=== PATIENT | female | born 1985 | race Caucasian/White ===

== ENCOUNTER 2020-05-02 02:07 | Inpatient (IN) | payer OTHER, SELFPAY ==
[~2020-05-02] VITALS: Ht 167.6 cm; Wt 118.7 kg
[2020-05-02] VITALS (21 sets, daily range): BP systolic 101–145; BP diastolic 46–82
[~2020-05-02 02:07] MED LIST: GLIP10TA9 PO; INSLAN SQ; INSU100C6 SQ; LISI-613 PO
[2020-05-02 02:36] LABS: BASOPHILS % (AUTO) 0.3 % (0.0-5.0); EOSINOPHILS % (AUTO) 0.1 % (0.0-8.0); HEMATOCRIT 42.1 % (36-48); LYMPHOCYTES % (AUTO) 15.8 % (21.0-51.0); MEAN CORPUSCULAR HEMOGLOBIN 28.3 pg (27.0-33.0); MEAN CORPUSCULAR HGB CONC 33.7 g/dL (32.0-36.0); NEUTROPHILS % (AUTO) 79.1 % (40.0-77.0); PLATELET COUNT (AUTO) 385 K/uL (130-400); RED BLOOD CELL COUNT(AUTO) 5.01 MIL/uL (4.00-5.50); RED CELL DISTRIBUTION WIDTH 14.2 % (11.0-15.5); WHITE BLOOD COUNT (AUTO) 24.6 K/uL (4.8-10.8)
[2020-05-02 02:38] LABS: APPEARANCE,URINE Cloudy (CLEAR); BILIRUBIN,URINE Small (NEGATIVE); COLOR,URINE Dark Yellow (YELLOW); GLUCOSE, URINE (UA) TRACE mg/dL (NEGATIVE); KETONES,URINE Negative (NEGATIVE); LEUKOCYTE ESTERASE ,URINE Small (NEGATIVE); NITRATE,URINE Positive (NEGATIVE); OCCULT BLOOD,URINE Large (NEGATIVE); PROTEIN,URINE >=1000 mg/dL (NEGATIVE)
[2020-05-02] MEDS ORDERED: METOCLOPRAMIDE 10 MG/2 ML VIAL ONE (02:41)
[2020-05-02] MEDS ORDERED: SODIUM CHLORIDE 0.9% 1000ML 1,000 ML IV ONE ×3 (02:42→05:25)
[2020-05-02] MEDS ORDERED: ONDANSETRON HCL 4 MG/2 ML VIAL ONE ×3 (02:42→17:35)
[2020-05-02] MEDS ORDERED: DiphenhydrAMINE HCL 50 MG/ML VIAL ONE (02:42)
[2020-05-02 02:44] LABS: HCG,QUAL RESULT NEGATIVE (NEGATIVE)
[2020-05-02 02:49] LABS: INR 0.9 (0.85-1.15); PARTIAL THROMBOPLASTIN TIME 24.8 SEC (26.3-35.5); PROTHROMBIN TIME 9.8 SEC (9.6-11.6)
[2020-05-02 03:16] LABS: BACTERIA,URINE Moderate /HPF (None Seen); SQUAMOUS EPITHELIAL CELL,UR Few /HPF (0-2)
[2020-05-02 03:17] LABS: ALBUMIN 3.1 g/dL (3.5-5.0); AMORPHOUS SEDIMENT,UR Moderate /LPF (None Seen); BILIRUBIN,TOTAL 0.5 mg/dL (0.2-1.0); CREATININE 0.9 mg/dL (0.5-1.5); POTASSIUM 3.7 mmol/L (3.5-5.1); TOTAL PROTEIN, SERUM 8.2 g/dL (6.0-8.3)
[2020-05-02] MEDS ORDERED: IOHEXOL-350 75 ML VIAL IV ONE (03:54)
[2020-05-02] MEDS ORDERED: CEFTRIAXONE SODIUM 2 GM VIAL ONE (04:07)
[2020-05-02] MEDS ORDERED: DEXTROSE 50%-WATER 50 ML DISP.SYRIN IV PRN (05:15)
[2020-05-02] MEDS: SODIUM CHLORIDE 0.9% 1000ML 1,000 ML IV SCH ×2 (05:15→15:15)
[2020-05-02] MEDS ORDERED: ONDANSETRON HCL 4 MG/2 ML VIAL IV PRN (05:15)
[2020-05-02] MEDS ORDERED: NITROGLYCERIN 0.4 MG SL TAB SL PRN (05:15)
[2020-05-02] MEDS ORDERED: GLUCAGON 1MG KIT 1 MG ML IM PRN (05:15)
[2020-05-02] MEDS ORDERED: DIPHENHYDRAMINE HCL 25 MG CAPSULE PO PRN (05:15)
[2020-05-02] MEDS ORDERED: ACETAMINOPHEN 325 MG TAB PO PRN ×2 (05:15)
[2020-05-02] MEDS ORDERED: MORPHINE SULFATE 2 MG/ML 1ML SYG ONE (05:25)
[2020-05-02] MEDS ORDERED: ZOSYN 3.375GM+NS 50ML 50 ML IV ONE (05:25)
[2020-05-02 05:45] LABS: HEMOGLOBIN A1C 8.6 % (4.0-6.0)
[2020-05-02] MEDS ORDERED: MORPHINE SULFATE 2 MG/ML 1ML SYG IVP PRN (05:45)
[2020-05-02] MEDS ORDERED: INSULIN HUMULIN R 100 UNIT/ML 3ML SQ SCH (06:00)
[2020-05-02 08:09] LABS: BASOPHILS % (AUTO) 0.3 % (0.0-5.0); EOSINOPHILS % (AUTO) 0.1 % (0.0-8.0); HEMATOCRIT 37.6 % (36-48); LYMPHOCYTES % (AUTO) 13.4 % (21.0-51.0); MEAN CORPUSCULAR HEMOGLOBIN 28.2 pg (27.0-33.0); MEAN CORPUSCULAR HGB CONC 33.8 g/dL (32.0-36.0); MEAN CORPUSCULAR VOLUME 83.6 fL (79-99); MONOCYTES % (AUTO) 5.3 % (3.0-13.0); NEUTROPHILS % (AUTO) 80.3 % (40.0-77.0); PLATELET COUNT (AUTO) 306 K/uL (130-400); RED CELL DISTRIBUTION WIDTH 14.2 % (11.0-15.5); WHITE BLOOD COUNT (AUTO) 23.5 K/uL (4.8-10.8)
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
[2020-05-02 08:26] LABS: ALBUMIN 2.5 g/dL (3.5-5.0); BILIRUBIN,TOTAL 0.6 mg/dL (0.2-1.0); CREATININE 0.8 mg/dL (0.5-1.5); POTASSIUM 3.5 mmol/L (3.5-5.1); TOTAL PROTEIN, SERUM 6.8 g/dL (6.0-8.3)
[2020-05-02] MEDS: ZOSYN 3.375GM+NS 50ML 50 ML IV SCH ×3 (09:14→20:25)
[2020-05-02] MEDS: LISINOPRIL 20 MG TABLET PO SCH (09:14)
[2020-05-02] MEDS: FAMOTIDINE/PF 20 MG/2 ML VIAL IV SCH ×2 (09:14→20:25)
[2020-05-02] MEDS: INSULIN HUMULIN R 100 UNIT/ML 3ML SQ SCH ×3 (12:24→20:59)
--- NOTE | 2020-05-02 13:15 | NUR ---
CM NOTE/SELF PAY PACKETS MET WITH PATIENT AND BROTHER IN ROOM. PATIENT AMBULATING TO BATHROOM. SELF PAY/MEDICAL PACKETS ALONG WITH GOOD RX COUPONS GIVEN AND EXPLAINED, PATIENT VERBALIZED UNDERSTANDING.
--- NOTE | 2020-05-02 13:39 | NUR ---
CM NOTE -- [place] Spoke with the patient's , Mr Efren Billings [phone]. As per Mr Billings, Mrs Billings lives with him at address on file, was independent with ADLs before this admission, has no home services, and no DME. Mr Billings to assist with transport on discharge. [facility] in [place] is preferred pharmacy, as per Mr Billings. CM to follow up. Addendum: 05/02/20 at 1343 by SPARKLE GUTIERREZ Amended: Links added.
[2020-05-02] MEDS ORDERED: SUCCINYLCHOLINE CHLORIDE 20 MG/ML 10 ML VIAL ONE ×2 (17:35→17:39)
[2020-05-02] MEDS ORDERED: LIDOCAINE PF 2% 5ML ABBOJECT ONE (17:35)
[2020-05-02] MEDS ORDERED: ROCURONIUM 10MG/1ML SYR 10 MG/ML ML ONE (17:36)
[2020-05-02] MEDS ORDERED: PROPOFOL 10 MG/ML 20ML VIAL IV ONE (17:36)
[2020-05-02] MEDS ORDERED: FENTANYL CITRATE PF 50 MCG/1 ML 2ML VIAL ONE ×2 (17:38→18:30)
[2020-05-02] MEDS ORDERED: MIDAZOLAM HCL 1 MG/ML 2ML VIAL ONE (17:39)
[2020-05-02] MEDS ORDERED: BUPIVACAINE/PF 0.25% 10ML VIAL IJ ONE (18:08)
[2020-05-02] MEDS ORDERED: EPHEDRINE SULFATE 50 MG/ML AMPULE ONE (18:08)
[2020-05-02] MEDS ORDERED: CEFAZOLIN SODIUM 1 GM VIAL ONE (18:20)
[2020-05-02] MEDS ORDERED: KETOROLAC TROMETHAMINE 30MG/ML ONE (18:22)
[2020-05-02] MEDS ORDERED: GLYCOPYRROLATE 1 MG/5 ML SYRINGE ONE (18:37)
[2020-05-02] MEDS ORDERED: NEOSTIGMINE 5MG/5ML SYR IV ONE (18:37)
[2020-05-02] MEDS ORDERED: MEPERIDINE-PF 25 MG/ML SYG ONE (19:17)
[2020-05-02] MEDS ORDERED: HYDROMORPHONE HCL 2 MG/ML VIAL IVP PRN (21:15)
[2020-05-03] VITALS (7 sets, daily range): BP systolic 114–135; BP diastolic 64–77
[2020-05-03] MEDS: KETOROLAC TROMETHAMINE 30MG/ML IV PRN ×3 (03:22→21:16)
[2020-05-03 03:44] LABS: HEMATOCRIT 33.8 % (36-48); MEAN CORPUSCULAR HEMOGLOBIN 28.3 pg (27.0-33.0); MEAN CORPUSCULAR HGB CONC 32.5 g/dL (32.0-36.0); MEAN CORPUSCULAR VOLUME 86.9 fL (79-99); PLATELET COUNT (AUTO) 277 K/uL (130-400); RED BLOOD CELL COUNT(AUTO) 3.89 MIL/uL (4.00-5.50); RED CELL DISTRIBUTION WIDTH 14.9 % (11.0-15.5)
[2020-05-03] MEDS: ZOSYN 3.375GM+NS 50ML 50 ML IV SCH ×3 (03:58→19:40)
[2020-05-03 04:05] LABS: ALBUMIN 2.2 g/dL (3.5-5.0); BILIRUBIN,TOTAL 0.5 mg/dL (0.2-1.0); MAGNESIUM 1.8 mg/dL (1.80-2.40); POTASSIUM 3.6 mmol/L (3.5-5.1); TOTAL PROTEIN, SERUM 6.5 g/dL (6.0-8.3)
[2020-05-03] MEDS ORDERED: MAGNESIUM 2GM PREMIX 50ML 50 ML IV PRN (04:15)
[2020-05-03] MEDS: SODIUM CHLORIDE 0.9% 1000ML 1,000 ML IV SCH ×2 (04:23→21:15)
[2020-05-03 04:46] LABS: BAND NEUTROPHILS % (MANUAL) 3 % (0-2); LYMPHOCYTES % (MANUAL) 27 % (22-44); MONOCYTES % (MANUAL) 4 % (2-9); SEGMENTED NEUTROPHILS % 66 % (40-70)
[2020-05-03 04:47] LABS: MAN.DIFF COMMENT-IMPRESSION MANUAL DIFFERENTIAL
[2020-05-03] MEDS: INSULIN HUMULIN R 100 UNIT/ML 3ML SQ SCH ×4 (06:23→21:00)
[2020-05-03] MEDS ORDERED: CEFTRIAXONE SODIUM 1 GM IV SCH (09:00)
[2020-05-03] MEDS: FAMOTIDINE/PF 20 MG/2 ML VIAL IV SCH ×2 (10:14→19:40)
[2020-05-03] MEDS: LISINOPRIL 20 MG TABLET PO SCH (10:14)
[2020-05-03] MEDS: INSULIN GLARGINE 100 UNITS/ML 10 ML VIAL SQ SCH ×2 (10:26→19:48)
[2020-05-03] MEDS: OXYCODONE/ACETAMIN 5/325MG TAB PO PRN (12:27)
[2020-05-03] MEDS: LISINOPRIL 5 MG TABLET PO SCH (13:30)
[2020-05-04] VITALS: BP 106/60
[2020-05-04] MEDS: ZOSYN 3.375GM+NS 50ML 50 ML IV SCH (03:45)
[2020-05-04] MEDS: KETOROLAC TROMETHAMINE 30MG/ML IV PRN (03:46)
[2020-05-04] MEDS: SODIUM CHLORIDE 0.9% 1000ML 1,000 ML IV SCH ×2 (03:55→07:15)
[2020-05-04 04:00] VITALS: BP 126/70
[2020-05-04 04:45] LABS: BASOPHILS % (AUTO) 0.4 % (0.0-5.0); EOSINOPHILS % (AUTO) 1.9 % (0.0-8.0); HEMATOCRIT 32.4 % (36-48); LYMPHOCYTES % (AUTO) 32.7 % (21.0-51.0); MEAN CORPUSCULAR HEMOGLOBIN 28.6 pg (27.0-33.0); MEAN CORPUSCULAR HGB CONC 32.1 g/dL (32.0-36.0); MONOCYTES % (AUTO) 4.7 % (3.0-13.0); NEUTROPHILS % (AUTO) 59.9 % (40.0-77.0); PLATELET COUNT (AUTO) 304 K/uL (130-400); RED BLOOD CELL COUNT(AUTO) 3.64 MIL/uL (4.00-5.50); RED CELL DISTRIBUTION WIDTH 15.2 % (11.0-15.5)
[2020-05-04 05:06] LABS: CREATININE 0.9 mg/dL (0.5-1.5); MAGNESIUM 2.7 mg/dL (1.80-2.40); POTASSIUM 3.8 mmol/L (3.5-5.1)
[2020-05-04] MEDS: INSULIN HUMULIN R 100 UNIT/ML 3ML SQ SCH (06:08)
[2020-05-04 08:00] VITALS: BP 122/68
[2020-05-04] MEDS ORDERED: IBUP-2077 PO (08:47)
[2020-05-04] MEDS ORDERED: TRAM50TA4 PO (08:47)
[2020-05-04] MEDS ORDERED: AMOX-429 PO (08:47)
[2020-05-04] MEDS: OXYCODONE/ACETAMIN 5/325MG TAB PO PRN (08:59)
[2020-05-04] MEDS: LISINOPRIL 5 MG TABLET PO SCH (09:01)
[2020-05-04] MEDS: FAMOTIDINE/PF 20 MG/2 ML VIAL IV SCH (09:02)
[2020-05-04] MEDS: INSULIN GLARGINE 100 UNITS/ML 10 ML VIAL SQ SCH (09:09)
[2020-05-04 11:00] VITALS: BP 127/66
--- NOTE | 2020-05-04 12:30 | NUR ---
DISCHARGE discussed discharge instructions with patient and .discussed follow up with pt and unable to schedule appointments due to lunch hour gave patient phone numbers and address ,states will follow up RX given and copies signed and placed in medical record ,informed patient she would be contacted from the hospital to discuss her home prescriptions,voices understanding
--- NOTE | 2020-05-07 11:34 | NUR ---
TRANSITIONAL CARE -- Post-Discharge Note NO ANSWER when I called patient's phone number. I left a message identifying myself and requesting a callback.
== END 2020-05-04 13:20 | disposition home or self-care (01) | DRG 854 ==
LOC: EDH 02:07 → EDHIP 02:08 → 3BH 06:13
PROVIDERS: ADMIT Family Medicine; ATTEND Family Medicine
PROC: 0DTJ4ZZ Resection of Appendix, Percutaneous Endoscopic Approach (ICD-10-PCS; principal; 2020-05-02 17:45)
DX: A41.9 Sepsis, unspecified organism (principal); N39.0 Urinary tract infection, site not specified; E87.1 Hypo-osmolality and hyponatremia; K35.891 Other acute appendicitis without perforation, with gangrene; Z68.41 Body mass index [BMI] 40.0-44.9, adult; R65.20 Severe sepsis without septic shock; E66.01 Morbid (severe) obesity due to excess calories; E11.9 Type 2 diabetes mellitus without complications; Z20.828 Contact with and (suspected) exposure to other viral communicable diseases; I10 Essential (primary) hypertension; Z79.4 Long term (current) use of insulin; Z88.8 Allergy status to other drugs, medicaments and biological substances; Z83.3 Family history of diabetes mellitus; Z82.49 Family history of ischemic heart disease and other diseases of the circulatory system
CPT/HCPCS: 36415; 74177; 80048; 80053; 81001; 81025; 82948; 83036; 83605; 83690; 83735; 84145; 85025; 85610; 85730; 87040; 87088; 87426; 93005; A4344; G0378; J0330; J0690; J0696; J1200; J1815; J1885; J2001; J2175; J2250; J2405; J2543; J2704; J2710; J2765; J3010; J3475; J3490; J7030; Q9967; U0003

== ENCOUNTER 2021-03-19 08:28 | Emergency (ER) | payer MEDICAID, SELFPAY ==
[~2021-03-19] VITALS: Ht 154.9 cm; Wt 118.8 kg
[~2021-03-19 08:28] MED LIST changes: +AMOX-429 PO; +IBUP-2077 PO; -LISI-613 PO; +LISI20TA24 PO; +TRAM50TA4 PO
[2021-03-19 09:08] LABS: BASOPHILS % (AUTO) 0.5 % (0.0-5.0); EOSINOPHILS % (AUTO) 2.4 % (0.0-8.0); HEMATOCRIT 34.3 % (36-48); LYMPHOCYTES % (AUTO) 18.6 % (21.0-51.0); MEAN CORPUSCULAR HEMOGLOBIN 28.1 pg (27.0-33.0); MEAN CORPUSCULAR HGB CONC 32.7 g/dL (32.0-36.0); MONOCYTES % (AUTO) 5.3 % (3.0-13.0); NEUTROPHILS % (AUTO) 72.4 % (40.0-77.0); PLATELET COUNT (AUTO) 309 K/uL (130-400); RED BLOOD CELL COUNT(AUTO) 3.99 MIL/uL (4.00-5.50); RED CELL DISTRIBUTION WIDTH 13.2 % (11.0-15.5); WHITE BLOOD COUNT (AUTO) 13.3 K/uL (4.8-10.8)
[2021-03-19 09:22] LABS: CREATININE 0.9 mg/dL (0.5-1.5); POTASSIUM 4.1 mmol/L (3.5-5.1)
[2021-03-19 09:27] LABS: ALBUMIN 3.1 g/dL (3.5-5.0); BILIRUBIN,TOTAL 0.5 mg/dL (0.2-1.0); TOTAL PROTEIN, SERUM 8.2 g/dL (6.0-8.3)
[2021-03-19] MEDS ORDERED: INSU100V3 SQ ×2 (09:45)
[2021-03-19] MEDS ORDERED: NPH,100V SQ ×2 (09:45)
[2021-03-19] MEDS ORDERED: LABE200T5 PO (09:45)
[2021-03-19] MEDS ORDERED: PNV1COMB11 PO (09:45)
[2021-03-19 10:57] VITALS: BP 153/84
== END 2021-03-19 11:04 | disposition home or self-care (01) ==
LOC: EDH 08:28
DX: O02.1 Missed abortion (principal); E11.9 Type 2 diabetes mellitus without complications; I10 Essential (primary) hypertension; Z79.1 Long term (current) use of non-steroidal anti-inflammatories (NSAID); Z79.4 Long term (current) use of insulin; Z79.899 Other long term (current) drug therapy; Z3A.13 13 weeks gestation of pregnancy
CPT/HCPCS: 36415; 76801; 76817; 80053; 84702; 84703; 85025; 86850; 86900; 86901